=== PATIENT | male | born 1960 ===

== ENCOUNTER 2017-01-30 11:11 | Day surgery (SDC) | payer OTHER ==
[~2017-01-30 11:11] MED LIST: Lactated Ringers 1,000 ML IV SCH
--- NOTE | 2017-01-30 11:29 | PCM.PREANE ---
Preanesthetic Assessment - Anesthesia/Transfusion/Family Hx Anesthesia History: Prior Anesthesia Without Reaction Family History of Anesthesia Reaction: No Transfusion History: No Prior Transfusion(s) - Review of Systems General: No Symptoms Pulmonary: No Symptoms Cardiovascular: No Symptoms Neurological: No Symptoms Other: Reports: None - Physical Assessment NPO Status Date: 01/29/17 Height: 1.78 m Weight: 92.079 kg ASA Class: 2 Mental Status: Alert & Oriented x3 Airway Class: Mallampati = 1 Dentition: Reports: Normal Dentition ROM/Head Extension: Full Lungs: Clear to Auscultation, Normal Respiratory Effort Cardiovascular: Regular Rate, Regular Rhythm - Allergies Allergies/Adverse Reactions: Allergies Allergy/AdvReac Type Severity Reaction Status Date / Time No Known Allergies Allergy Verified 01/28/17 14:42 - Anesthesia Plan Pre-Op Medication Ordered: None - Acknowledgements Anesthesia Type Planned: MAC Pt an Appropriate Candidate for the Planned Anesthesia: Yes Alternatives and Risks of Anesthesia Discussed w Pt/Guardian: Yes Pt/Guardian Understands and Agrees with Anesthesia Plan: Yes PreAnesthesia Questionnaire Other HEENT History: wears glasses Cardiovascular History: Reports: Hypertension Respiratory History: Reports: None Gastrointestinal History: Reports: Diverticulosis, Hepatitis, Hiatal Hernia Other Gastrointestinal History: has Hepatitis C Genitourinary History: Reports: None Musculoskeletal History: Reports: None Neurological History: Reports: None Psychiatric History: Reports: Anxiety, Depression Endocrine/Metabolic History: Reports: None Hematologic History: Reports: None Immunologic History: Reports: None Oncologic (Cancer) History: Reports: None - Past Surgical History Head Surgeries/Procedures: Reports: None Cardiovascular Surgical History: Reports: None GI Surgical History: Reports: Colonoscopy, Hernia, Inguinal Other GI Surgeries/Procedures: Hemicolectomy for diverticulitis Male Surgical History: Reports: None Musculoskeletal Surgical History: Reports: Shoulder Surgery Other Musculoskeletal Surgeries/Procedures:: right RTCR - SUBSTANCE USE Smoking Status *Q: Current Every Day Smoker Tobacco Use Within Last Twelve Months: Cigarettes Days Per Week of Alcohol Use: 5 Number of Drinks Per Day: 2 Total Drinks Per Week: 10 Recreational Drug Use History: Yes - HOME MEDS Home Medications: Home Meds ALPRAZolam [Xanax] 1 mg PO DAILY PRN 01/28/17 [History] Aspirin [Adult Low Dose Aspirin EC] 81 mg PO DAILY 01/28/17 [History] Bisoprolol/Hydrochlorothiazide [Ziac 10-6.25 MG] 1 tab PO DAILY 01/28/17 [ History] Pantoprazole Sodium 40 mg PO DAILY 01/28/17 [History] - CURRENT (IN HOUSE) MEDS Current Meds: Current Medications Lactated Ringer's (Ringers, Lactated) 1,000 mls @ 125 mls/hr IV ASDIRECTED JOSE RAUL
[2017-01-30] MEDS ORDERED: Propofol 200 MG/20 ML SDV ONE ×2 (11:38→11:41)
[2017-01-30] MEDS ORDERED: fentaNYL 100 MCG/2 ML SDV ONE (11:41)
[2017-01-30] MEDS ORDERED: Midazolam 1 MG/ML 2 ML SDV ONE (11:41)
[2017-01-30] MEDS ORDERED: Lidocaine 2% 5 ML SDV ONE (11:41)
--- NOTE | 2017-01-30 12:01 | PCM.OPNOTE ---
- General Post-Op/Procedure Note Date of Surgery/Procedure: 01/30/17 Operative Procedure(s): egd w bx. and colonoscopy Findings: see dictation [id number] Pre Op Diagnosis: increase constipation and abd pain Post-Op Diagnosis: GERD and diverticulosis Anesthesia Technique: Moderate Sedation Primary Surgeon: Randall Rm Pathology: sent Complications: None Condition: Good
--- NOTE | 2017-01-30 12:38 | PCM48HPAN ---
Post Anesthesia Note - EVALUATION WITHIN 48HRS OF ANESTHETIC Vital Signs in Normal Range: Yes Patient Participated in Evaluation: Yes Respiratory Function Stable: Yes Airway Patent: Yes Cardiovascular Function Stable: Yes Hydration Status Stable: Yes Pain Control Satisfactory: Yes Nausea and Vomiting Control Satisfactory: Yes Mental Status Recovered: Yes
--- NOTE | 2017-01-30 12:38 | PCM.POSTAN ---
POST ANESTHESIA ASSESSMENT - MENTAL STATUS Mental Status: Alert, Oriented - RESPIRATORY Respiratory Status: Respiratory Rate WNL, Airway Patent, O2 Saturation Stable - CARDIOVASCULAR CV Status: Pulse Rate WNL, Blood Pressure Stable - GASTROINTESTINAL GI Status: No Symptoms - POST OP HYDRATION Hydration Status: Adequate & Stable
[2017-01-30 12:51] VITALS: BP 114/69
--- NOTE | 2017-01-30 16:29 | OR ---
SURGEON: Randall Rm MD DATE OF PROCEDURE: 01/30/2017 PREOPERATIVE DIAGNOSES: History of diverticulitis, increased constipation, and abdominal pain. POSTOPERATIVE DIAGNOSES: 1. Esophagogastroduodenoscopy; diagnosis, big time acid reflux, gastroesophageal reflux disease. 2. Colonoscopy; diagnosis, diverticulosis. PROCEDURE PERFORMED: 1. Esophagogastroduodenoscopy with biopsy. 2. Colonoscopy. EGD FINDINGS: 1. The patient is easily sedated with WATER QUALITY TESTER and Diprivan. The patient is soundly snoring. 2. Oropharynx and proximal esophagus is free of disease, stricture, inflammation, ulceration. 3. Distal esophagus at GE junction at 40 with flame-like structure and salmon color change suggest [id number] acid reflux. No ulceration or esophagitis. Stomach rugae is normal in appearance and no bile, food, blood, or ulcer observed. Antrum is a little bit inflamed. Duodenum is grossly normal. Retroflexed look of the fundus of the stomach, there was no hiatal hernia. Biopsy done at antrum, GE junction, and body and sucked out the air while scope pulling out. DESCRIPTION OF PROCEDURE: The patient was taken to the endoscopy room, and with the WATER QUALITY TESTER, Diprivan was administered. A well-lubricated EGD scope was gently inserted through the oropharynx, down the esophagus, passing through the gastroesophageal junction, into the stomach. The mucosa was examined upon the passage. Any etiology will be noted. Once in the stomach, we continued to advance to the distal antrum, passed through the pylorus into the second portion of the duodenum. Again, the mucosa was examined for any abnormality and etiology. The scope was then retrieved back to the stomach and then retroflexed to look at the fundus of the stomach. If a biopsy was indicated, we will biopsy the antrum, body, and gastroesophageal junction. The air will be sucked out while the scope is retrieved to reduce the patient's discomfort. The patient tolerated the procedure well. There were no intraoperative complications. Dr. Rm was present through the whole procedure. Prior to surgery, a time-out had been called, the patient identified, procedure identified and antibiotic administered. COLONOSCOPY FINDINGS: 1. The patient is easily sedated with WATER QUALITY TESTER and Diprivan. The patient is soundly snoring. 2. Bowel prep is left to be desirable with a large amount of liquid stool, and also some semi-formed stool ball probably from the diverticulosis. 3. The patient has moderate diverticulosis on the left and moderate diverticulosis on the right. There was no diverticulosis on the transverse colon. Failed to observe any anastomosis line at all. The patient also has internal hemorrhoids. No polyp, inflammation, stricture, ulceration, bleeding, AV malformation observed, or external hemorrhoids. The patient would benefit from a repeat colonoscopy in 10 years from today or if clinically indicated otherwise. DESCRIPTION OF PROCEDURE: The patient was taken to the endoscopy room. A time out was called, patient identified, and procedure identified. Diprivan was then administrated. Patient went from awake to sleep, hearing doctor talking or door closing is normal. Perineum inspection and digital examination were then performed. A well- lubricated colonoscope was gently inserted through the rectum, advanced past the rectosigmoid junction, the descending colon, splenic flexure, transverse colon, hepatic flexure, ascending colon, arrived to the cecum. Cecum was identified as dictated in the finding. Then the scope was carefully withdrawn while attention was paid to the mucosal surface for any abnormality. Air will be sucked out during the scope withdrawal. At the rectum, retroflexed to examine any rectal diseases, fistula or hemorrhoids. Patient tolerated procedure well. There were no intraoperative complications, and Dr. Rm was present throughout the whole procedure. As always, thank you for the kind referral. MATHEUS LORA /[id number]
== END 2017-01-30 12:40 | disposition home or self-care (01) ==
LOC: MW.SDS 11:11
PROVIDERS: ATTEND Surgery
DX: K29.50 Unspecified chronic gastritis without bleeding (principal); K20.9 Esophagitis, unspecified; K57.30 Diverticulosis of large intestine without perforation or abscess without bleeding; K64.8 Other hemorrhoids; B18.2 Chronic viral hepatitis C; I10 Essential (primary) hypertension; F41.8 Other specified anxiety disorders; F17.210 Nicotine dependence, cigarettes, uncomplicated; Z79.82 Long term (current) use of aspirin; Z79.899 Other long term (current) drug therapy; Z90.49 Acquired absence of other specified parts of digestive tract; Z98.890 Other specified postprocedural states; Z80.0 Family history of malignant neoplasm of digestive organs
CPT/HCPCS: 43239; 45380; J2250; J3010; J7120; 00740; 88305; 88312; J2704

== ENCOUNTER 2017-05-05 08:00 | Inpatient (IN) | payer OTHER ==
[~2017-05-05 08:00] MED LIST changes: +Acetaminophen 1,000 MG in Premix Bag 1 BAG IV ONE; +Acetaminophen 1,000 MG in Premix Bag 1 BAG IV SCH; +Famotidine 20 MG/2 ML SDV IVPUSH SCH; +Ketorolac 30 MG/ML SDV IVPUSH SCH; -Lactated Ringers 1,000 ML IV SCH; +Ropivacaine 49.25 ML, EPINEPHrine 0.5 MG, cloNIDine 80 MCG in Sodium Chloride 0.9% 48.4... INJECT ONE; +Ropivacaine 49.25 ML, Ketorolac 30 MG, EPINEPHrine 0.5 MG, cloNIDine 80 MCG in Sodium C... INJECT ONE; +Scopolamine 1.5 MG Transdermal Patch TRDERM SCH; +ceFAZolin 2 GM in Premix Bag 1 BAG IV SCH; +oxyCODONE ER 20 MG TAB.ER PO SCH
[2017-05-05] MEDS: Lactated Ringers 1,000 ML IV SCH (11:15)
--- NOTE | 2017-05-05 11:23 | PCM.OPNOTE ---
- General Post-Op/Procedure Note Date of Surgery/Procedure: 05/05/17 Operative Procedure(s): R TKA Post-Op Diagnosis: DJD R knee Anesthesia Technique: Moderate Sedation, Spinal Primary Surgeon: Marion Spangler Auto Driver: Albino Hernandez Auto Driver: Josselyn Lorenzo in mLs: 50 Condition: Good Free Text/Narrative:: tt=64 min #[id number]
--- NOTE | 2017-05-05 12:11 | PCM.PREANE ---
Preanesthetic Assessment - Anesthesia/Transfusion/Family Hx Anesthesia History: Prior Anesthesia Without Reaction Other Type of Anesthesia Reaction Comment: Pt states it takes "a lot of pain medicine to keep me down" Family History of Anesthesia Reaction: No Transfusion History: No Prior Transfusion(s) - Review of Systems General: No Symptoms Pulmonary: No Symptoms Cardiovascular: No Symptoms Gastrointestinal: No Symptoms Neurological: No Symptoms Other: Reports: None - Physical Assessment NPO Status Date: 05/05/17 NPO Status Time: 00:00 O2 Sat by Pulse Oximetry: 95 Respiratory Rate: 16 Vital Signs: Last Vital Signs Temp 98.2 F 05/05/17 11:05 Pulse 77 05/05/17 11:05 Resp 16 05/05/17 11:05 BP 138/92 H 05/05/17 11:05 Pulse Ox 95 05/05/17 11:05 Height: 5 ft 10 in Weight: 219 lb ASA Class: 3 Mental Status: Alert & Oriented x3 Airway Class: Mallampati = 2 Dentition: Reports: Normal Dentition Thyro-Mental Finger Breadths: 3 Mouth Opening Finger Breadths: 3 ROM/Head Extension: Full Lungs: Clear to Auscultation, Normal Respiratory Effort Cardiovascular: Regular Rate, Regular Rhythm - Allergies Allergies/Adverse Reactions: Allergies Allergy/AdvReac Type Severity Reaction Status Date / Time No Known Allergies Allergy Verified 04/30/17 15:08 - Blood Blood Available: No Product(s) Available: None - Anesthesia Plan Free Text/Narrative:: Plan for SAB with MAC - pt is slightly hesitant because he feels spinals are "outdated" - after discussion of risks and benefits, pt agrees to proceed with spinal at this time. Pre-Op Medication Ordered: None - Acknowledgements Anesthesia Type Planned: Spinal, MAC Pt an Appropriate Candidate for the Planned Anesthesia: Yes Alternatives and Risks of Anesthesia Discussed w Pt/Guardian: Yes Pt/Guardian Understands and Agrees with Anesthesia Plan: Yes PreAnesthesia Questionnaire HEENT History: Reports: Cataract Other HEENT History: wears glasses Cardiovascular History: Reports: Afib (hx of afib 18 months ago with cardioversion in [place] - pt stated he had a heart cath done at that time and was told everything was clear - no episodes of afib since), Hypertension Respiratory History: Reports: None Gastrointestinal History: Reports: Diverticulosis, GERD, Hepatitis, Hiatal Hernia Other Gastrointestinal History: was told he had a hiatal hernia in the past, but recent EGD did not show it, has chronic Hepatitis C Genitourinary History: Reports: None Musculoskeletal History: Reports: None Neurological History: Reports: None Psychiatric History: Reports: Anxiety Endocrine/Metabolic History: Reports: Obesity/BMI 30+ Hematologic History: Reports: None Immunologic History: Reports: None Oncologic (Cancer) History: Reports: None - Infectious Disease History Infectious Disease History: Reports: Hepatitis C - Past Surgical History Head Surgeries/Procedures: Reports: None Cardiovascular Surgical History: Reports: None, Other (See Below) (cardiac cath with no intervention and hx of cardioversion) GI Surgical History: Reports: Colon, Colonoscopy, EGD, Hernia, Inguinal Other GI Surgeries/Procedures: hx of Left Hemicolectomy for diverticulitis Male Surgical History: Reports: None Musculoskeletal Surgical History: Reports: Shoulder Surgery Other Musculoskeletal Surgeries/Procedures:: right RTCR - SUBSTANCE USE Smoking Status *Q: Current Every Day Smoker Tobacco Use Within Last Twelve Months: Cigarettes (1-1 1/2 packs per day) Days Per Week of Alcohol Use: 6 Number of Drinks Per Day: 2 Total Drinks Per Week: 12 Recreational Drug Use History: Yes Recreational Drug Type: Reports: Marijuana/Hashish Recreational Drug Last Use: 2 weeks ago - HOME MEDS Home Medications: Home Meds ALPRAZolam [Xanax] 1 mg PO DAILY PRN 01/28/17 [History] Aspirin [Adult Low Dose Aspirin EC] 81 mg PO DAILY 01/28/17 [History] Bisoprolol/Hydrochlorothiazide [Ziac 10-6.25 MG] 1 tab PO DAILY 01/28/17 [ History] Pantoprazole Sodium 40 mg PO DAILY 01/28/17 [History] - CURRENT (IN HOUSE) MEDS Current Meds: Current Medications Famotidine (Pepcid) 40 mg IVPUSH ONARRIVE JOSE RAUL Stop: 05/05/17 15:00 Cefazolin Sodium/Dextrose 2 gm (/ Premix) 50 mls @ 100 mls/hr IV ONCALL JOSE RAUL Stop: 05/05/17 15:00 Lactated Ringer's (Ringers, Lactated) 1,000 mls @ 100 mls/hr IV ASDIRECTED JOSE RAUL Acetaminophen 1,000 mg/ Premix 100 mls @ 400 mls/hr IV ONCALL JOSE RAUL Stop: 05/05/17 15:00 Oxycodone HCl (Oxycontin) 20 mg PO ONARRIVE JOSE RAUL Stop: 05/05/17 15:00 Scopolamine (Transderm-Scop) 1.5 mg TRDERM ONARRIVE JOSE RAUL Tranexamic Acid (Cyklokapron) 4,000 mg IV SEECOMMENT [facility] Stop: 05/05/17 15:00 Discontinued Medications Ropivacaine 49.25 ml/Ketorolac Tromethamine 30 mg/Epinephrine HCl 0.5 mg/ Clonidine HCl 80 mcg/ Sodium Chloride 100 mls @ 50 mls/min INJECT ONETIME ONE Stop: 05/05/17 06:01 Acetaminophen 1,000 mg/ Premix 100 mls @ 400 mls/hr IV ONCALL ONE Stop: 05/05/17 06:14 Ropivacaine 49.25 ml/Epinephrine HCl 0.5 mg/Clonidine HCl 80 mcg/ Sodium Chloride 99 mls @ 50 mls/min INJECT ONETIME ONE Stop: 05/05/17 06:01 Ketorolac Tromethamine (Toradol) 30 mg IVPUSH ONARRIVE [facility] Tranexamic Acid (Cyklokapron) Confirm Administered Dose 4,000 mg .ROUTE .STK- MED ONE Stop: 05/05/17 07:19
[2017-05-05] MEDS ORDERED: Lidocaine 2% 5 ML SDV ONE (13:37)
[2017-05-05] MEDS ORDERED: fentaNYL 100 MCG/2 ML SDV ONE ×2 (13:38→14:55)
[2017-05-05] MEDS ORDERED: Midazolam 1 MG/ML 2 ML SDV ONE (13:38)
[2017-05-05] MEDS ORDERED: Propofol 200 MG/20 ML SDV ONE (13:38)
[2017-05-05] MEDS ORDERED: Ketamine 500 mg/10 ML MDV ONE (14:44)
[2017-05-05] MEDS ORDERED: Ondansetron 4 MG/2 ML SDV ONE (14:45)
[2017-05-05] MEDS ORDERED: Aluminum Hydroxide/Magnesium Hydroxide/Simethicone Susp 30 ML Cup PO PRN (16:03)
[2017-05-05] MEDS ORDERED: Bisacodyl 10 MG Supp RECTAL PRN (16:03)
[2017-05-05] MEDS ORDERED: diphenhydrAMINE 25 MG Cap PO PRN (16:03)
[2017-05-05] MEDS ORDERED: Ondansetron 4 MG/2 ML SDV IV PRN (16:03)
[2017-05-05] MEDS ORDERED: Morphine 4 MG/ML Syringe IVPUSH PRN (16:04)
[2017-05-05] MEDS: fentaNYL 100 MCG/2 ML SDV IVPUSH PRN ×4 (16:35→17:12)
[2017-05-05] MEDS ORDERED: Cyclobenzaprine 5 MG Tab PO PRN (16:48)
--- NOTE | 2017-05-05 17:29 | PCM.POSTAN ---
POST ANESTHESIA ASSESSMENT - MENTAL STATUS Mental Status: Alert, Oriented - RESPIRATORY Respiratory Status: Respiratory Rate WNL, Airway Patent, O2 Saturation Stable - CARDIOVASCULAR CV Status: Pulse Rate WNL, Blood Pressure Stable - GASTROINTESTINAL GI Status: No Symptoms - PAIN Pain Score: 5 (Spinal intact @ T10 level) - POST OP HYDRATION Hydration Status: Adequate & Stable - OBSERVATIONS Free Text/Narrative:: Pt having some discomfort to his R back - states that he has had muscle spasms before and "feels twisted" - IV fentanyl initially given and pt offered PO Flexeril, but currently declining because he "doesn't like the way it makes me feel." Pt aware that he can request it at any time. Spinal still intact to T10 @ this time. Pt meets requirements for discharge from PACU.
[2017-05-05] MEDS: Ketorolac 30 MG/ML SDV IVPUSH SCH ×2 (17:50→22:33)
[2017-05-05] MEDS: oxyCODONE 5 MG Tab PO PRN (18:52)
[2017-05-05] MEDS: HYDROmorphone 1 MG/ML Syringe IVPUSH PRN ×2 (20:32→23:53)
[2017-05-05] MEDS: Acetaminophen 1,000 MG in Premix Bag 1 BAG IV SCH (20:35)
[2017-05-05] MEDS: Docusate Sodium 100 MG Cap PO SCH (21:27)
[2017-05-05] MEDS: oxyCODONE ER 20 MG TAB.ER PO SCH (21:27)
[2017-05-05] MEDS: ceFAZolin 2 GM in Premix Bag 1 BAG IV SCH (22:38)
[2017-05-06] MEDS: Acetaminophen 1,000 MG in Premix Bag 1 BAG IV SCH (02:12)
[2017-05-06] MEDS: Lactated Ringers 1,000 ML IV SCH (04:48)
[2017-05-06] MEDS: Ketorolac 30 MG/ML SDV IVPUSH SCH (04:49)
[2017-05-06] MEDS: ceFAZolin 2 GM in Premix Bag 1 BAG IV SCH (05:35)
[2017-05-06] MEDS: oxyCODONE 5 MG Tab PO PRN ×4 (05:36→18:00)
[2017-05-06] MEDS: Pantoprazole 40 MG Tab.CR PO SCH (06:39)
[2017-05-06] MEDS: HYDROmorphone 1 MG/ML Syringe IVPUSH PRN ×4 (08:24→18:34)
--- NOTE | 2017-05-06 08:29 | PCM.SURGPN ---
<Albino Hernandez - Last Filed: 05/06/17 08:29> - General Info Date of Service: 05/06/17 Date of Surgery/Procedure: 05/05/17 POD#: 1 Functional Status: Reports: Pain Controlled, Tolerating Diet, Ambulating, Urinating - Review of Systems General: Reports: No Symptoms Pulmonary: Reports: No Symptoms Cardiovascular: Reports: No Symptoms Gastrointestinal: Reports: No Symptoms Genitourinary: Reports: No Symptoms Musculoskeletal: Reports: Leg Pain, Joint Pain, Joint Swelling Neurological: Reports: No Symptoms Psychiatric: Reports: No Symptoms - Patient Data Vitals - Most Recent: Last Vital Signs Temp 36.5 C 05/06/17 05:00 Pulse 89 05/06/17 05:00 Resp 19 05/06/17 05:00 BP 128/82 05/06/17 05:00 Pulse Ox 95 05/06/17 05:00 Weight - Most Recent: 99.337 kg I&O - Last 24 Hours: Intake & Output 05/05/17 05/06/17 05/06/17 22:59 06:59 14:59 Intake Total 3000 750 Output Total 60 800 Balance 2940 -50 Lab Results Last 24 Hrs: Laboratory Results - last 24 hr 05/05/17 05/05/17 05/06/17 Range/Units 11:20 11:20 07:19 Hgb 13.7 (13.0-17.0) g/dL Hct 39.7 (38.0-50.0) % Blood Type B POSITIVE Antibody Screen POSITIVE Antibody Identification Anti-E Antigen Typing E Antigen - NEGATIVE Cancelled Crossmatch See Detail Med Orders - Current: Current Medications Al Hydroxide/Mg Hydroxide (Mag-Al Plus) 30 ml PO Q4H PRN PRN Reason: indigestion Alprazolam (Xanax) 1 mg PO DAILY PRN PRN Reason: Anxiety Aspirin (Aspirin) 325 mg PO BID [facility] Bisacodyl (Dulcolax) 10 mg RECTAL DAILY PRN PRN Reason: Constipation Celecoxib (Celebrex) 200 mg PO DAILY [facility] Cyclobenzaprine HCl (Flexeril) 5 mg PO TID PRN PRN Reason: Back spasms Stop: 05/06/17 16:48 Last Admin: 05/05/17 18:15 Dose: 5 mg Diphenhydramine HCl (Benadryl) 25 - 50 mg PO Q6H PRN PRN Reason: Itching Docusate Sodium (Colace) 100 mg PO BID [facility] Last Admin: 05/05/17 21:27 Dose: 100 mg Fentanyl (Sublimaze) 50 mcg IVPUSH .Q5MIN PRN PRN Reason: Pain Last Admin: 05/05/17 17:12 Dose: 50 mcg Hydromorphone HCl (Dilaudid) 1 mg IVPUSH Q3H PRN PRN Reason: Pain Last Admin: 05/06/17 08:24 Dose: 1 mg Lactated Ringer's (Ringers, Lactated) 1,000 mls @ 100 mls/hr IV ASDIRECTED [facility] Last Admin: 05/06/17 04:48 Dose: 100 mls/hr Ondansetron HCl (Zofran) 4 mg IV Q6HR PRN PRN Reason: NAUSEA/VOMITING Oxycodone HCl (Oxycodone) 5 - 10 mg PO Q4H PRN PRN Reason: Pain Last Admin: 05/06/17 05:36 Dose: 10 mg Oxycodone HCl (Oxycontin) 20 mg PO Q12HR [facility] Last Admin: 05/05/17 21:27 Dose: 20 mg Pantoprazole Sodium (Protonix) 40 mg PO ACBREAKFAST [facility] Last Admin: 05/06/17 06:39 Dose: 40 mg Bisoprolol/Hctz 1 each PO DAILY [facility] Scopolamine (Transderm-Scop) 1.5 mg TRDERM ONARRIVE [facility] Last Admin: 05/05/17 12:40 Dose: 1.5 mg Discontinued Medications Famotidine (Pepcid) 40 mg IVPUSH ONARRIVE [facility] Stop: 05/05/17 15:00 Last Admin: 05/05/17 12:40 Dose: 40 mg Fentanyl (Sublimaze) Confirm Administered Dose 100 mcg .ROUTE .STK-MED ONE Stop: 05/05/17 13:39 Fentanyl (Sublimaze) Confirm Administered Dose 100 mcg .ROUTE .STK-MED ONE Stop: 05/05/17 14:56 Cefazolin Sodium/Dextrose 2 gm (/ Premix) 50 mls @ 100 mls/hr IV ONCALL [facility] Stop: 05/05/17 15:00 Ropivacaine 49.25 ml/Ketorolac Tromethamine 30 mg/Epinephrine HCl 0.5 mg/ Clonidine HCl 80 mcg/ Sodium Chloride 100 mls @ 50 mls/min INJECT ONETIME ONE Stop: 05/05/17 06:01 Acetaminophen 1,000 mg/ Premix 100 mls @ 400 mls/hr IV ONCALL ONE Stop: 05/05/17 06:14 Ropivacaine 49.25 ml/Epinephrine HCl 0.5 mg/Clonidine HCl 80 mcg/ Sodium Chloride 99 mls @ 50 mls/min INJECT ONETIME ONE Stop: 05/05/17 06:01 Last Admin: 05/05/17 17:43 Dose: Not Given Acetaminophen 1,000 mg/ Premix 100 mls @ 400 mls/hr IV ONCALL [facility] Stop: 05/05/17 15:00 Last Admin: 05/05/17 12:40 Dose: 400 mls/hr Acetaminophen 1,000 mg/ Premix 100 mls @ 400 mls/hr IV Q6H [facility] Stop: 05/06/17 02:14 Last Admin: 05/06/17 02:12 Dose: 400 mls/hr Cefazolin Sodium/Dextrose 2 gm (/ Premix) 50 mls @ 100 mls/hr IV Q8HR [facility] Stop: 05/06/17 06:29 Last Admin: 05/06/17 05:35 Dose: 100 mls/hr Acetaminophen (Ofirmev) Confirm Administered Dose 100 mls @ as directed IV .STK- MED ONE Stop: 05/06/17 01:52 Ketamine HCl (Ketalar) Confirm Administered Dose 500 mg .ROUTE .STK-MED ONE Stop: 05/05/17 14:45 Ketorolac Tromethamine (Toradol) 30 mg IVPUSH ONARRIVE [facility] Ketorolac Tromethamine (Toradol) 30 mg IVPUSH Q6H [facility] Stop: 05/06/17 04:16 Last Admin: 05/06/17 04:49 Dose: 30 mg Lidocaine (Xylocaine-Mpf 2%) Confirm Administered Dose 5 ml .ROUTE .STK-MED ONE Stop: 05/05/17 13:38 Midazolam HCl (Versed 1 Mg/Ml) Confirm Administered Dose 4 mg .ROUTE .STK-MED ONE Stop: 05/05/17 13:39 Morphine Sulfate (Morphine) 1 - 3 mg IVPUSH Q3H PRN PRN Reason: Pain Last Admin: 05/05/17 17:52 Dose: 3 mg Ondansetron HCl (Zofran) Confirm Administered Dose 4 mg .ROUTE .STK-MED ONE Stop: 05/05/17 14:46 Oxycodone HCl (Oxycontin) 20 mg PO ONARRIVE [facility] Stop: 05/05/17 15:00 Last Admin: 05/05/17 12:40 Dose: 20 mg Propofol (Diprivan 20 Ml) Confirm Administered Dose 800 mg .ROUTE .STK-MED ONE Stop: 05/05/17 13:39 Tranexamic Acid (Cyklokapron) 4,000 mg IV SEECOMMENT [facility] Stop: 05/05/17 15:00 Tranexamic Acid (Cyklokapron) Confirm Administered Dose 4,000 mg .ROUTE .STK- MED ONE Stop: 05/05/17 07:19 - Exam Wound/Incisions: Dressing Dry and Intact General: Alert, Oriented HEENT: Pupils Equal, Pupils Reactive Neck: Trachea Midline Lungs: Normal Respiratory Effort Cardiovascular: Regular Rate Extremities: Other (Right anterior tibialis, extensor hallucis longus and gastrocnemius strength +5/5 bilaterally. Sensation intact. Dorsalis pedis and posterior tibial pulses +2 bilaterally. ) Neurological: No New Focal Deficit Psy/Mental Status: Alert, Normal Affect, Normal Mood - Problem List Review Problem List Initiated/Reviewed/Updated: Yes - My Orders Last 24 Hours: Active Orders 24 hr Category Date Time Status Patient Status [ADT] Routine ADT 05/05/17 11:23 Active Activity as Tolerated [RC] .Routine Care 05/05/17 16:03 Active Intake and Output [RC] Q12H Care 05/05/17 16:03 Active Neurovascular Check [RC] Q2HR Care 05/05/17 16:03 Active Notify Provider Vital Signs [RC] ASDIRECTED Care 05/05/17 16:03 Active RT Incentive Spirometry [RC] ASDIRECTED Care 05/05/17 16:03 Active Vital Signs [RC] Q4H Care 05/05/17 16:03 Active PT Evaluation and Treatment [CONS] Routine Cons 05/05/17 16:03 Active Knee 1V or 2V Rt [CR] Routine Exams 05/05/17 15:18 Taken HEMOGLOBIN/HEMATOCRIT,HH [HEME] DAILY Lab 05/07/17 07:00 Ordered HEMOGLOBIN/HEMATOCRIT,HH [HEME] DAILY Lab 05/08/17 07:00 Ordered RED BLOOD CELLS LP [BBK] Routine Lab 05/05/17 11:20 Results ALPRAZolam [Xanax] Med 05/06/17 09:00 Active 1 mg PO DAILY PRN Alum Hydrox/Mag Hydrox/Simeth [Mag-Al Plus] Med 05/05/17 16:03 Active 30 ml PO Q4H PRN Aspirin Med 05/06/17 09:00 Active 325 mg PO BID Bisacodyl [Dulcolax] Med 05/05/17 16:03 Active 10 mg RECTAL DAILY PRN Celecoxib [CeleBREX] Med 05/06/17 09:00 Active 200 mg PO DAILY Cyclobenzaprine [Flexeril] Med 05/05/17 16:48 Active 5 mg PO TID PRN Docusate Sodium [Colace] Med 05/05/17 21:00 Active 100 mg PO BID HYDROmorphone [Dilaudid] Med 05/05/17 20:20 Active 1 mg IVPUSH Q3H PRN Ondansetron [Zofran] Med 05/05/17 16:03 Active 4 mg IV Q6HR PRN Pantoprazole [ProTONIX] Med 05/06/17 07:30 Active 40 mg PO ACBREAKFAST Patient's Own Medication [Ptom] Med 05/06/17 09:00 Active 1 each PO DAILY diphenhydrAMINE [Benadryl] Med 05/05/17 16:03 Active 25 - 50 mg PO Q6H PRN fentaNYL [Sublimaze] Med 05/05/17 15:06 Active 50 mcg IVPUSH .Q5MIN PRN oxyCODONE Med 05/05/17 16:04 Active 5 - 10 mg PO Q4H PRN oxyCODONE ER [OxyCONTIN] Med 05/05/17 21:00 Active 20 mg PO Q12HR Ice Therapy [OM.PC] Routine Oth 05/05/17 16:03 Ordered Medication Orders Al Hydroxide/Mg Hydroxide (Mag-Al Plus) 30 ml PO Q4H PRN PRN Reason: indigestion Alprazolam (Xanax) 1 mg PO DAILY PRN PRN Reason: Anxiety Aspirin (Aspirin) 325 mg PO BID [facility] Bisacodyl (Dulcolax) 10 mg RECTAL DAILY PRN PRN Reason: Constipation Celecoxib (Celebrex) 200 mg PO DAILY [facility] Cyclobenzaprine HCl (Flexeril) 5 mg PO TID PRN PRN Reason: Back spasms Stop: 05/06/17 16:48 Last Admin: 05/05/17 18:15 Dose: 5 mg Diphenhydramine HCl (Benadryl) 25 - 50 mg PO Q6H PRN PRN Reason: Itching Docusate Sodium (Colace) 100 mg PO BID [facility] Last Admin: 05/05/17 21:27 Dose: 100 mg Fentanyl (Sublimaze) 50 mcg IVPUSH .Q5MIN PRN PRN Reason: Pain Last Admin: 05/05/17 17:12 Dose: 50 mcg Admin: 05/05/17 17:07 Dose: 50 mcg Admin: 05/05/17 16:48 Dose: 50 mcg Admin: 05/05/17 16:35 Dose: 50 mcg Hydromorphone HCl (Dilaudid) 1 mg IVPUSH Q3H PRN PRN Reason: Pain Last Admin: 05/06/17 08:24 Dose: 1 mg Admin: 05/05/17 23:53 Dose: 1 mg Admin: 05/05/17 20:32 Dose: 1 mg Lactated Ringer's (Ringers, Lactated) 1,000 mls @ 100 mls/hr IV ASDIRECTED [facility] Last Admin: 05/06/17 04:48 Dose: 100 mls/hr Infusion: 05/05/17 21:15 Dose: 100 mls/hr Admin: 05/05/17 11:15 Dose: 100 mls/hr Ondansetron HCl (Zofran) 4 mg IV Q6HR PRN PRN Reason: NAUSEA/VOMITING Oxycodone HCl (Oxycodone) 5 - 10 mg PO Q4H PRN PRN Reason: Pain Last Admin: 05/06/17 05:36 Dose: 10 mg Admin: 05/05/17 18:52 Dose: 10 mg Oxycodone HCl (Oxycontin) 20 mg PO Q12HR [facility] Last Admin: 05/05/17 21:27 Dose: 20 mg Pantoprazole Sodium (Protonix) 40 mg PO ACBREAKFAST [facility] Last Admin: 05/06/17 06:39 Dose: 40 mg Bisoprolol/Hctz 1 each PO DAILY [facility] Scopolamine (Transderm-Scop) 1.5 mg TRDERM ONARRIVE [facility] Last Admin: 05/05/17 12:40 Dose: 1.5 mg - Assessment Assessment (Free Text/Narrative):: Patient up to chair this AM. Pain well controlled. Tolerating diet. VSS. Hgb 13.7. UO 1360 mL. - Plan Plan (Free Text/Narrative):: Continue PT. Continue pain management. Discontinue LRs and [place]. Encourage PO fluid intake. Start Aspirin 325mg PO BID for DVT prophylaxis. Discharge home this afternoon. <Marion Spangler R - Last Filed: 05/06/17 18:23> - Patient Data Vitals - Most Recent: Last Vital Signs Temp 97.8 F 05/06/17 16:00 Pulse 71 05/06/17 16:00 Resp 16 05/06/17 16:00 BP 168/93 H 05/06/17 16:00 Pulse Ox 94 L 05/06/17 16:00 I&O - Last 24 Hours: Intake & Output 05/06/17 05/06/17 05/06/17 06:59 14:59 22:59 Intake Total 750 Output Total 800 Balance -50 Lab Results Last 24 Hrs: Laboratory Results - last 24 hr 05/06/17 Range/Units 07:19 Hgb 13.7 (13.0-17.0) g/dL Hct 39.7 (38.0-50.0) % Med Orders - Current: Current Medications Al Hydroxide/Mg Hydroxide (Mag-Al Plus) 30 ml PO Q4H PRN PRN Reason: indigestion Alprazolam (Xanax) 1 mg PO DAILY PRN PRN Reason: Anxiety Aspirin (Ecotrin) 325 mg PO BID [facility] Last Admin: 05/06/17 10:52 Dose: 325 mg Bisacodyl (Dulcolax) 10 mg RECTAL DAILY PRN PRN Reason: Constipation Celecoxib (Celebrex) 200 mg PO DAILY [facility] Last Admin: 05/06/17 08:30 Dose: 200 mg Diphenhydramine HCl (Benadryl) 25 - 50 mg PO Q6H PRN PRN Reason: Itching Docusate Sodium (Colace) 100 mg PO BID [facility] Last Admin: 05/06/17 08:30 Dose: 100 mg Fentanyl (Sublimaze) 50 mcg IVPUSH .Q5MIN PRN PRN Reason: Pain Last Admin: 05/05/17 17:12 Dose: 50 mcg Hydromorphone HCl (Dilaudid) 1 mg IVPUSH Q3H PRN PRN Reason: Pain Last Admin: 05/06/17 15:29 Dose: 1 mg Ondansetron HCl (Zofran) 4 mg IV Q6HR PRN PRN Reason: NAUSEA/VOMITING Oxycodone HCl (Oxycontin) 20 mg PO Q12HR [facility] Last Admin: 05/06/17 08:30 Dose: 20 mg Oxycodone HCl (Oxycodone) 10 - 20 mg PO Q4H PRN PRN Reason: Pain Last Admin: 05/06/17 18:00 Dose: 20 mg Pantoprazole Sodium (Protonix) 40 mg PO ACBREAKFAST [facility] Last Admin: 05/06/17 06:39 Dose: 40 mg Bisoprolol/Hctz 1 each PO DAILY [facility] Last Admin: 05/06/17 10:53 Dose: Not Given Scopolamine (Transderm-Scop) 1.5 mg TRDERM ONARRIVE [facility] Last Admin: 05/05/17 12:40 Dose: 1.5 mg Sodium Chloride (Saline Flush) 10 ml FLUSH ASDIRECTED PRN PRN Reason: Keep Vein Open Sodium Chloride (Saline Flush) 2.5 ml FLUSH ASDIRECTED PRN PRN Reason: Keep Vein Open Discontinued Medications Aspirin (Aspirin) 325 mg PO BID [facility] Cyclobenzaprine HCl (Flexeril) 5 mg PO TID PRN PRN Reason: Back spasms Stop: 05/06/17 16:48 Last Admin: 05/05/17 18:15 Dose: 5 mg Famotidine (Pepcid) 40 mg IVPUSH ONARRIVE [facility] Stop: 05/05/17 15:00 Last Admin: 05/05/17 12:40 Dose: 40 mg Fentanyl (Sublimaze) Confirm Administered Dose 100 mcg .ROUTE .STK-MED ONE Stop: 05/05/17 13:39 Fentanyl (Sublimaze) Confirm Administered Dose 100 mcg .ROUTE .STK-MED ONE Stop: 05/05/17 14:56 Cefazolin Sodium/Dextrose 2 gm (/ Premix) 50 mls @ 100 mls/hr IV ONCALL [facility] Stop: 05/05/17 15:00 Ropivacaine 49.25 ml/Ketorolac Tromethamine 30 mg/Epinephrine HCl 0.5 mg/ Clonidine HCl 80 mcg/ Sodium Chloride 100 mls @ 50 mls/min INJECT ONETIME ONE Stop: 05/05/17 06:01 Lactated Ringer's (Ringers, Lactated) 1,000 mls @ 100 mls/hr IV ASDIRECTED [facility] Last Admin: 05/06/17 04:48 Dose: 100 mls/hr Acetaminophen 1,000 mg/ Premix 100 mls @ 400 mls/hr IV ONCALL ONE Stop: 05/05/17 06:14 Ropivacaine 49.25 ml/Epinephrine HCl 0.5 mg/Clonidine HCl 80 mcg/ Sodium Chloride 99 mls @ 50 mls/min INJECT ONETIME ONE Stop: 05/05/17 06:01 Last Admin: 05/05/17 17:43 Dose: Not Given Acetaminophen 1,000 mg/ Premix 100 mls @ 400 mls/hr IV ONCALL [facility] Stop: 05/05/17 15:00 Last Admin: 05/05/17 12:40 Dose: 400 mls/hr Acetaminophen 1,000 mg/ Premix 100 mls @ 400 mls/hr IV Q6H [facility] Stop: 05/06/17 02:14 Last Admin: 05/06/17 02:12 Dose: 400 mls/hr Cefazolin Sodium/Dextrose 2 gm (/ Premix) 50 mls @ 100 mls/hr IV Q8HR [facility] Stop: 05/06/17 06:29 Last Admin: 05/06/17 05:35 Dose: 100 mls/hr Acetaminophen (Ofirmev) Confirm Administered Dose 100 mls @ as directed IV .STK- MED ONE Stop: 05/06/17 01:52 Ketamine HCl (Ketalar) Confirm Administered Dose 500 mg .ROUTE .STK-MED ONE Stop: 05/05/17 14:45 Ketorolac Tromethamine (Toradol) 30 mg IVPUSH ONARRIVE [facility] Ketorolac Tromethamine (Toradol) 30 mg IVPUSH Q6H [facility] Stop: 05/06/17 04:16 Last Admin: 05/06/17 04:49 Dose: 30 mg Lidocaine (Xylocaine-Mpf 2%) Confirm Administered Dose 5 ml .ROUTE .STK-MED ONE Stop: 05/05/17 13:38 Midazolam HCl (Versed 1 Mg/Ml) Confirm Administered Dose 4 mg .ROUTE .STK-MED ONE Stop: 05/05/17 13:39 Morphine Sulfate (Morphine) 1 - 3 mg IVPUSH Q3H PRN PRN Reason: Pain Last Admin: 05/05/17 17:52 Dose: 3 mg Ondansetron HCl (Zofran) Confirm Administered Dose 4 mg .ROUTE .STK-MED ONE Stop: 05/05/17 14:46 Oxycodone HCl (Oxycontin) 20 mg PO ONARRIVE [facility] Stop: 05/05/17 15:00 Last Admin: 05/05/17 12:40 Dose: 20 mg Oxycodone HCl (Oxycodone) 5 - 10 mg PO Q4H PRN PRN Reason: Pain Last Admin: 05/06/17 10:37 Dose: 10 mg Propofol (Diprivan 20 Ml) Confirm Administered Dose 800 mg .ROUTE .STK-MED ONE Stop: 05/05/17 13:39 Tranexamic Acid (Cyklokapron) 4,000 mg IV SEECOMMENT [facility] Stop: 05/05/17 15:00 Tranexamic Acid (Cyklokapron) Confirm Administered Dose 4,000 mg .ROUTE .STK- MED ONE Stop: 05/05/17 07:19 - My Orders Last 24 Hours: Active Orders 24 hr Category Date Time Status Ready for Discharge [RC] PER UNIT ROUTINE Care 05/06/17 08:35 Inactive Urinary Catheter Removal [RC] Per Unit Routine Care 05/06/17 08:31 Active HEMOGLOBIN/HEMATOCRIT,HH [HEME] DAILY Lab 05/07/17 07:00 Ordered HEMOGLOBIN/HEMATOCRIT,HH [HEME] DAILY Lab 05/08/17 07:00 Ordered ALPRAZolam [Xanax] Med 05/06/17 09:00 Active 1 mg PO DAILY PRN Aspirin [Ecotrin] Med 05/06/17 09:00 Active 325 mg PO BID Celecoxib [CeleBREX] Med 05/06/17 09:00 Active 200 mg PO DAILY Docusate Sodium [Colace] Med 05/05/17 21:00 Active 100 mg PO BID HYDROmorphone [Dilaudid] Med 05/05/17 20:20 Active 1 mg IVPUSH Q3H PRN Pantoprazole [ProTONIX] Med 05/06/17 07:30 Active 40 mg PO ACBREAKFAST Patient's Own Medication [Ptom] Med 05/06/17 09:00 Active 1 each PO DAILY Sodium Chloride 0.9% [Saline Flush] Med 05/06/17 08:31 Active 10 ml FLUSH ASDIRECTED PRN Sodium Chloride 0.9% [Saline Flush] Med 05/06/17 08:31 Active 2.5 ml FLUSH ASDIRECTED PRN oxyCODONE Med 05/06/17 13:29 Active 10 - 20 mg PO Q4H PRN oxyCODONE ER [OxyCONTIN] Med 05/05/17 21:00 Active 20 mg PO Q12HR Convert IV to Saline Lock [OM.PC] Routine Oth 05/06/17 08:31 Ordered Medication Orders Al Hydroxide/Mg Hydroxide (Mag-Al Plus) 30 ml PO Q4H PRN PRN Reason: indigestion Alprazolam (Xanax) 1 mg PO DAILY PRN PRN Reason: Anxiety Aspirin (Ecotrin) 325 mg PO BID [facility] Last Admin: 05/06/17 10:52 Dose: 325 mg Bisacodyl (Dulcolax) 10 mg RECTAL DAILY PRN PRN Reason: Constipation Celecoxib (Celebrex) 200 mg PO DAILY [facility] Last Admin: 05/06/17 08:30 Dose: 200 mg Diphenhydramine HCl (Benadryl) 25 - 50 mg PO Q6H PRN PRN Reason: Itching Docusate Sodium (Colace) 100 mg PO BID [facility] Last Admin: 05/06/17 08:30 Dose: 100 mg Admin: 05/05/17 21:27 Dose: 100 mg Fentanyl (Sublimaze) 50 mcg IVPUSH .Q5MIN PRN PRN Reason: Pain Last Admin: 05/05/17 17:12 Dose: 50 mcg Admin: 05/05/17 17:07 Dose: 50 mcg Admin: 05/05/17 16:48 Dose: 50 mcg Admin: 05/05/17 16:35 Dose: 50 mcg Hydromorphone HCl (Dilaudid) 1 mg IVPUSH Q3H PRN PRN Reason: Pain Last Admin: 05/06/17 15:29 Dose: 1 mg Admin: 05/06/17 11:28 Dose: 1 mg Admin: 05/06/17 08:24 Dose: 1 mg Admin: 05/05/17 23:53 Dose: 1 mg Admin: 05/05/17 20:32 Dose: 1 mg Ondansetron HCl (Zofran) 4 mg IV Q6HR PRN PRN Reason: NAUSEA/VOMITING Oxycodone HCl (Oxycontin) 20 mg PO Q12HR [facility] Last Admin: 05/06/17 08:30 Dose: 20 mg Admin: 05/05/17 21:27 Dose: 20 mg Oxycodone HCl (Oxycodone) 10 - 20 mg PO Q4H PRN PRN Reason: Pain Last Admin: 05/06/17 18:00 Dose: 20 mg Admin: 05/06/17 13:57 Dose: 20 mg Pantoprazole Sodium (Protonix) 40 mg PO ACBREAKFAST [facility] Last Admin: 05/06/17 06:39 Dose: 40 mg Bisoprolol/Hctz 1 each PO DAILY [facility] Last Admin: 05/06/17 10:53 Dose: Scopolamine (Transderm-Scop) 1.5 mg TRDERM ONARRIVE [facility] Last Admin: 05/05/17 12:40 Dose: 1.5 mg Sodium Chloride (Saline Flush) 10 ml FLUSH ASDIRECTED PRN PRN Reason: Keep Vein Open Sodium Chloride (Saline Flush) 2.5 ml FLUSH ASDIRECTED PRN PRN Reason: Keep Vein Open - Plan Plan (Free Text/Narrative):: 1820 Patient seen and examined. Agree with above. Patient was up walking with nursing. States pain not adequately controlled despite oxycodone 20mg po q4H. States po Dilaudid has worked in the past. IV Dilaudid also helping with pain. Unable to use Tylenol due to h/o Hep C. Progressing with PT. Hgb stable. Patient quite belligerent with staff today. VSS, AFEB Incision clean/dry. No significant drainage. Moderate swelling in knee. No calf TTP. NVI. POD #1 1. will try po Dilaudid and d/c oxycontin/oxycodone 2. continue PT and mobilization 3. plan for discharge home tomorrow if pain better controlled
[2017-05-06] MEDS: Docusate Sodium 100 MG Cap PO SCH ×2 (08:30→20:16)
[2017-05-06] MEDS: oxyCODONE ER 20 MG TAB.ER PO SCH (08:30)
[2017-05-06] MEDS: Celecoxib 100 MG Cap PO SCH (08:30)
[2017-05-06] MEDS ORDERED: Sodium Chloride 0.9% 2.5 ML Syringe FLUSH PRN (08:31)
[2017-05-06] MEDS ORDERED: Sodium Chloride 0.9% 10 ML Syringe FLUSH PRN (08:31)
--- NOTE | 2017-05-06 08:36 | OR ---
SURGEON: Marion Spangler MD DATE OF PROCEDURE: 05/05/2017 PREOPERATIVE DIAGNOSIS: Degenerative joint disease, right knee, tricompartmental. POSTOPERATIVE DIAGNOSIS: Degenerative joint disease, right knee, tricompartmental. PROCEDURE: Right total knee arthroplasty. ASSISTANTS: Albino Hernandez PA-C and Josselyn Lorenzo PA-C. ANESTHESIA: Spinal with sedation. ESTIMATED BLOOD LOSS: 50 mL. TOURNIQUET TIME: 64 minutes. COMPLICATIONS: None. DVT PROPHYLAXIS: PAS boot and KELLEN hose to the nonoperative leg. IMPLANTS USED: Krystal Persona femoral component size 11 standard (LPS), tibial component size G, 10 mm all-polyethylene articular surface, and 35 mm all-polyethylene patella. FINDINGS: Intraoperative findings showed severe tricompartmental degenerative changes with varus abnormality. He did have excess osteophyte formation and had a large osteophyte along the medial aspect of his tibia, which was able to be resected. He had multiple loose bodies within the joint as well. BRIEF HISTORY: Juventino is a 56-year-old male, who has had complaint of progressive right knee pain. He had failed conservative treatment. Due to his lack of response to conservative treatment, I did recommend surgical intervention. The risks and goals of the procedure were discussed with the patient and were documented preoperatively. He agreed to proceed. DESCRIPTION OF PROCEDURE: The patient was properly identified and brought to the operating room. The patient was then transferred from the operating room cart and placed on the operating table in a supine position. Anesthesia was administered by the anesthesia staff. After adequate anesthesia was obtained, a well-padded tourniquet was applied to the surgical lower extremity. Oshea catheter was placed. The lower extremity was then prepped in standard fashion using ChloraPrep solution. It was then sterilely draped. A time-out was performed to ensure correct site and procedure. Preoperative antibiotics were given along with one gram tranexamic acid IV. The surgical site had been marked preoperatively. An Esmarch was used to exsanguinate the right lower extremity and the tourniquet was inflated. An incision was made over the anterior aspect of the knee. The subcutaneous tissues were dissected down to the level of the fascia. A medial parapatellar approach to the knee was made. A portion of the infrapatellar fat pad was then excised. The distal femur was then exposed. The step reamer was used to gain access to the intramedullary canal. This was placed in 6 degrees of valgus. Pins were placed. The distal femoral cutting block was placed and the distal femoral cut was made. Instrumentation was then removed. The femur was then sized. Both Whitesides' line and the epicondylar axis were then marked with electrocautery. The 4-in-1 cutting block was placed. This was placed in a slightly externally rotated position, which corresponded well with the previously drawn lines. The cutting guide was then pinned into position. An Pastor wing guide was used to check the depth of resection of our anterior condylar cut and it was felt that no notching would occur. The anterior condylar cut was then made followed by the posterior condylar cut. Both the posterior chamfer and anterior chamfer cuts were then made. The cutting block was then removed along with the excess bony remnants. We then turned our attention to the tibia. The anterior cruciate ligament and posterior cruciate ligament were released and a posterior cruciate ligament retractor was placed to allow the tibia to be pulled anteriorly. The tibial extra-medullary guide was then positioned. We chose to take approximately 2 mm off of the lowest side. The proximal tibia cutting guide was then placed and screwed into position. The proximal tibial resection was then made with care being taken to protect the patellar tendon. The bony resection was then removed. The remainder of the medial and lateral meniscus were then excised. Care was taken to protect the popliteus tendon. The tibia was then sized to the appropriate size. The distal femur was then elevated. The posterior capsule was stripped off the distal femur both medially and laterally. The posterior capsule along with the medial and lateral gutters were then injected with a standard mixture consisting of clonidine, epinephrine, Toradol, and opivacaine, unless any allergies were found preoperatively. The femoral component was then placed onto the distal femur in a slightly lateral position. This fit the femur well. A box cut was then made without difficulty. This was then removed. The tibial trial along with the polyethylene liner was then placed. The knee came easily into full extension and was stable to varus and valgus stressing both in full extension and flexion. Any additional releases were performed at this time. We then returned our attention to the patella. The patella was everted and towel clamps were used to hold the patella in position. It was resected to a 15 millimeter thickness. It was then sized to the appropriate size. It was prepared in the usual fashion after placing the predetermined size clamps. This was placed in a slightly superior and medial position. The clamp was then removed. The patellar trial button was placed. The knee was taken through a range of motion using the no-touch technique. The patella tracked centrally. A drop alec was then placed to check alignment. All instruments were then removed from the knee. The tibial sizer was then placed on the tibia. The tibia was prepared in the usual fashion using the reamer and broach. This was then removed. All bony surfaces were copiously irrigated with Pulsavac solution. They were then suctioned dry. Cement was prepared on the back table in the usual manner. Antibiotic impregnated cement was used if the patient was diabetic. Once it was prepared, the bone ends were again suctioned dry. The tibia was cemented into place first. This was malleted into position. Excess cement was then cleared. The femur was then placed in a similar manner. We placed the polyethylene trial into place and the knee was brought into full extension. An axial load was placed while keeping the knee in full extension. The patella button was also cemented into position and the clamp was used to hold this in place as the cement was allowed to cure. The wound was copiously irrigated with saline using a pulsavac range management specialist. Following this, 1 gram of tranexamic acid was applied topically to the wound during the curing process. After we had adequate curing of the cement, the knee was again taken through a range of motion. The size of the polyethylene was then determined. The polyethylene trial was then removed. The tibial tray was suctioned to make sure there was no remaining soft tissue or cement. Excess cement was cleared from around the edges of the prosthesis as well. The tourniquet was then deflated. We were able to observe for any excess bleeding and none was noted. Electrocautery was used to maintain hemostasis. An additional gram of tranexamic acid was given IV. The retractors were again placed and the predetermined polyethylene was then placed. This was locked into position without difficulty. The knee was again taken through a range of motion with no change from the prior exam. The fascial layer was closed with Number One Vicryl. The subcutaneous tissues were closed with 2-0 Vicryl. The skin was closed with tereza. Xeroform gauze was placed over the wound and a bulky dressing was applied. The patient was then awakened from anesthesia and transferred back to the operating room cart. They were brought to the recovery room in stable condition. All needle and sponge counts were correct. RYAN LORA /[id number]
[2017-05-06] MEDS ORDERED: Aspirin 325 MG Tab PO SCH (09:00)
[2017-05-06] MEDS ORDERED: ALPRAZolam 0.5 MG Tab PO PRN ×2 (09:00→18:26)
--- NOTE | 2017-05-06 09:20 | CR ---
EXAMINATION: Right knee HISTORY: Arthroplasty COMPARISON: 03/11/2017 TECHNIQUE: 2 views FINDINGS/IMPRESSION: Right total knee hardware is demonstrated in good position and alignment. Postop erative soft tissue changes are noted.
--- NOTE | 2017-05-06 09:44 | PCM48HPAN ---
Post Anesthesia Note - EVALUATION WITHIN 48HRS OF ANESTHETIC Vital Signs in Normal Range: Yes Patient Participated in Evaluation: Yes Respiratory Function Stable: Yes Airway Patent: Yes Cardiovascular Function Stable: Yes Hydration Status Stable: Yes Pain Control Satisfactory: Yes Nausea and Vomiting Control Satisfactory: Yes Mental Status Recovered: Yes - COMMENTS/OBSERVATIONS Free Text/Narrative:: No apparent anesthesia complications.
[2017-05-06] MEDS: Aspirin 325 MG Tab.EC PO SCH ×2 (10:52→20:16)
[2017-05-06] MEDS: bisoprolol/HCTZ PO SCH (10:53)
[2017-05-06] MEDS: HYDROmorphone 2 MG Tab PO PRN (22:00)
[2017-05-07] MEDS: HYDROmorphone 2 MG Tab PO PRN ×2 (02:52→06:48)
[2017-05-07 04:25] VITALS: BP 148/87
[2017-05-07] MEDS: Pantoprazole 40 MG Tab.CR PO SCH (06:48)
--- NOTE | 2017-05-07 08:06 | PCM.SURGPN ---
- General Info Date of Service: 05/07/17 Date of Surgery/Procedure: 05/05/17 POD#: 2 Functional Status: Reports: Pain Controlled, Tolerating Diet, Ambulating, Urinating - Review of Systems General: Reports: No Symptoms Pulmonary: Reports: No Symptoms Cardiovascular: Reports: No Symptoms Gastrointestinal: Reports: No Symptoms Genitourinary: Reports: No Symptoms Musculoskeletal: Reports: Leg Pain, Joint Pain, Joint Swelling Neurological: Reports: No Symptoms Psychiatric: Reports: No Symptoms - Patient Data Vitals - Most Recent: Last Vital Signs Temp 37.3 C 05/07/17 04:00 Pulse 85 05/07/17 04:00 Resp 16 05/07/17 04:00 BP 148/87 H 05/07/17 04:00 Pulse Ox 96 05/07/17 04:00 Weight - Most Recent: 99.337 kg I&O - Last 24 Hours: Intake & Output 05/06/17 05/07/17 05/07/17 22:59 06:59 14:59 Intake Total 1890 1250 Output Total 2230 2800 Balance -340 -1550 Lab Results Last 24 Hrs: Laboratory Results - last 24 hr 05/07/17 Range/Units 07:14 Hgb 13.6 (13.0-17.0) g/dL Hct 39.3 (38.0-50.0) % Med Orders - Current: Current Medications Al Hydroxide/Mg Hydroxide (Mag-Al Plus) 30 ml PO Q4H PRN PRN Reason: indigestion Alprazolam (Xanax) 1 mg PO Q8H PRN PRN Reason: Anxiety Aspirin (Ecotrin) 325 mg PO BID [facility] Last Admin: 05/06/17 20:16 Dose: 325 mg Bisacodyl (Dulcolax) 10 mg RECTAL DAILY PRN PRN Reason: Constipation Celecoxib (Celebrex) 200 mg PO DAILY [facility] Last Admin: 05/06/17 08:30 Dose: 200 mg Diphenhydramine HCl (Benadryl) 25 - 50 mg PO Q6H PRN PRN Reason: Itching Docusate Sodium (Colace) 100 mg PO BID [facility] Last Admin: 05/06/17 20:16 Dose: 100 mg Fentanyl (Sublimaze) 50 mcg IVPUSH .Q5MIN PRN PRN Reason: Pain Last Admin: 05/05/17 17:12 Dose: 50 mcg Hydromorphone HCl (Dilaudid) 1 mg IVPUSH Q3H PRN PRN Reason: Pain Last Admin: 05/06/17 18:34 Dose: 1 mg Hydromorphone HCl (Dilaudid) 2 mg PO Q4H PRN PRN Reason: Pain Last Admin: 05/07/17 06:48 Dose: 2 mg Ondansetron HCl (Zofran) 4 mg IV Q6HR PRN PRN Reason: NAUSEA/VOMITING Pantoprazole Sodium (Protonix) 40 mg PO ACBREAKFAST [facility] Last Admin: 05/07/17 06:48 Dose: Not Given Bisoprolol/Hctz 1 each PO DAILY [facility] Last Admin: 05/06/17 10:53 Dose: Not Given Scopolamine (Transderm-Scop) 1.5 mg TRDERM ONARRIVE [facility] Last Admin: 05/05/17 12:40 Dose: 1.5 mg Sodium Chloride (Saline Flush) 10 ml FLUSH ASDIRECTED PRN PRN Reason: Keep Vein Open Sodium Chloride (Saline Flush) 2.5 ml FLUSH ASDIRECTED PRN PRN Reason: Keep Vein Open Discontinued Medications Alprazolam (Xanax) 1 mg PO DAILY PRN PRN Reason: Anxiety Aspirin (Aspirin) 325 mg PO BID [facility] Cyclobenzaprine HCl (Flexeril) 5 mg PO TID PRN PRN Reason: Back spasms Stop: 05/06/17 16:48 Last Admin: 05/05/17 18:15 Dose: 5 mg Famotidine (Pepcid) 40 mg IVPUSH ONARRIVE [facility] Stop: 05/05/17 15:00 Last Admin: 05/05/17 12:40 Dose: 40 mg Fentanyl (Sublimaze) Confirm Administered Dose 100 mcg .ROUTE .STK-MED ONE Stop: 05/05/17 13:39 Fentanyl (Sublimaze) Confirm Administered Dose 100 mcg .ROUTE .STK-MED ONE Stop: 05/05/17 14:56 Cefazolin Sodium/Dextrose 2 gm (/ Premix) 50 mls @ 100 mls/hr IV ONCALL [facility] Stop: 05/05/17 15:00 Ropivacaine 49.25 ml/Ketorolac Tromethamine 30 mg/Epinephrine HCl 0.5 mg/ Clonidine HCl 80 mcg/ Sodium Chloride 100 mls @ 50 mls/min INJECT ONETIME ONE Stop: 05/05/17 06:01 Lactated Ringer's (Ringers, Lactated) 1,000 mls @ 100 mls/hr IV ASDIRECTED [facility] Last Admin: 05/06/17 04:48 Dose: 100 mls/hr Acetaminophen 1,000 mg/ Premix 100 mls @ 400 mls/hr IV ONCALL ONE Stop: 05/05/17 06:14 Ropivacaine 49.25 ml/Epinephrine HCl 0.5 mg/Clonidine HCl 80 mcg/ Sodium Chloride 99 mls @ 50 mls/min INJECT ONETIME ONE Stop: 05/05/17 06:01 Last Admin: 05/05/17 17:43 Dose: Not Given Acetaminophen 1,000 mg/ Premix 100 mls @ 400 mls/hr IV ONCALL [facility] Stop: 05/05/17 15:00 Last Admin: 05/05/17 12:40 Dose: 400 mls/hr Acetaminophen 1,000 mg/ Premix 100 mls @ 400 mls/hr IV Q6H [facility] Stop: 05/06/17 02:14 Last Admin: 05/06/17 02:12 Dose: 400 mls/hr Cefazolin Sodium/Dextrose 2 gm (/ Premix) 50 mls @ 100 mls/hr IV Q8HR [facility] Stop: 05/06/17 06:29 Last Admin: 05/06/17 05:35 Dose: 100 mls/hr Acetaminophen (Ofirmev) Confirm Administered Dose 100 mls @ as directed IV .STK- MED ONE Stop: 05/06/17 01:52 Ketamine HCl (Ketalar) Confirm Administered Dose 500 mg .ROUTE .STK-MED ONE Stop: 05/05/17 14:45 Ketorolac Tromethamine (Toradol) 30 mg IVPUSH ONARRIVE [facility] Ketorolac Tromethamine (Toradol) 30 mg IVPUSH Q6H [facility] Stop: 05/06/17 04:16 Last Admin: 05/06/17 04:49 Dose: 30 mg Lidocaine (Xylocaine-Mpf 2%) Confirm Administered Dose 5 ml .ROUTE .STK-MED ONE Stop: 05/05/17 13:38 Midazolam HCl (Versed 1 Mg/Ml) Confirm Administered Dose 4 mg .ROUTE .STK-MED ONE Stop: 05/05/17 13:39 Morphine Sulfate (Morphine) 1 - 3 mg IVPUSH Q3H PRN PRN Reason: Pain Last Admin: 05/05/17 17:52 Dose: 3 mg Ondansetron HCl (Zofran) Confirm Administered Dose 4 mg .ROUTE .STK-MED ONE Stop: 05/05/17 14:46 Oxycodone HCl (Oxycontin) 20 mg PO ONARRIVE [facility] Stop: 05/05/17 15:00 Last Admin: 05/05/17 12:40 Dose: 20 mg Oxycodone HCl (Oxycodone) 5 - 10 mg PO Q4H PRN PRN Reason: Pain Last Admin: 05/06/17 10:37 Dose: 10 mg Oxycodone HCl (Oxycontin) 20 mg PO Q12HR [facility] Last Admin: 05/06/17 08:30 Dose: 20 mg Oxycodone HCl (Oxycodone) 10 - 20 mg PO Q4H PRN PRN Reason: Pain Last Admin: 05/06/17 18:00 Dose: 20 mg Propofol (Diprivan 20 Ml) Confirm Administered Dose 800 mg .ROUTE .STK-MED ONE Stop: 05/05/17 13:39 Tranexamic Acid (Cyklokapron) 4,000 mg IV SEECOMMENT [facility] Stop: 05/05/17 15:00 Tranexamic Acid (Cyklokapron) Confirm Administered Dose 4,000 mg .ROUTE .STK- MED ONE Stop: 05/05/17 07:19 - Exam Wound/Incisions: Dressing Dry and Intact (Dressing changed yesterday.) General: Alert, Oriented HEENT: Pupils Equal, Pupils Reactive Neck: Trachea Midline Lungs: Normal Respiratory Effort Cardiovascular: Regular Rate Extremities: Other (Right anterior tibialis, extensor hallucis longus and gastrocnemius strength +5/5 bilaterally. Sensation intact. Dorsalis pedis and posterior tibial pulses +2 bilaterally.) Neurological: No New Focal Deficit Psy/Mental Status: Alert, Normal Affect, Normal Mood - Problem List Review Problem List Initiated/Reviewed/Updated: Yes - My Orders Last 24 Hours: Active Orders 24 hr Category Date Time Status Ready for Discharge [RC] PER UNIT ROUTINE Care 05/06/17 08:35 Inactive HEMOGLOBIN/HEMATOCRIT,HH [HEME] DAILY Lab 05/08/17 07:00 Ordered ALPRAZolam [Xanax] Med 05/06/17 18:26 Active 1 mg PO Q8H PRN Aspirin [Ecotrin] Med 05/06/17 09:00 Active 325 mg PO BID Celecoxib [CeleBREX] Med 05/06/17 09:00 Active 200 mg PO DAILY HYDROmorphone [Dilaudid] Med 05/06/17 18:24 Active 2 mg PO Q4H PRN Pantoprazole [ProTONIX] Med 05/06/17 07:30 Active 40 mg PO ACBREAKFAST Patient's Own Medication [Ptom] Med 05/06/17 09:00 Active 1 each PO DAILY Sodium Chloride 0.9% [Saline Flush] Med 05/06/17 08:31 Active 10 ml FLUSH ASDIRECTED PRN Sodium Chloride 0.9% [Saline Flush] Med 05/06/17 08:31 Active 2.5 ml FLUSH ASDIRECTED PRN Convert IV to Saline Lock [OM.PC] Routine Oth 05/06/17 08:31 Ordered Medication Orders Al Hydroxide/Mg Hydroxide (Mag-Al Plus) 30 ml PO Q4H PRN PRN Reason: indigestion Alprazolam (Xanax) 1 mg PO Q8H PRN PRN Reason: Anxiety Aspirin (Ecotrin) 325 mg PO BID [facility] Last Admin: 05/06/17 20:16 Dose: 325 mg Admin: 05/06/17 10:52 Dose: 325 mg Bisacodyl (Dulcolax) 10 mg RECTAL DAILY PRN PRN Reason: Constipation Celecoxib (Celebrex) 200 mg PO DAILY [facility] Last Admin: 05/06/17 08:30 Dose: 200 mg Diphenhydramine HCl (Benadryl) 25 - 50 mg PO Q6H PRN PRN Reason: Itching Docusate Sodium (Colace) 100 mg PO BID [facility] Last Admin: 05/06/17 20:16 Dose: 100 mg Admin: 05/06/17 08:30 Dose: 100 mg Admin: 05/05/17 21:27 Dose: 100 mg Fentanyl (Sublimaze) 50 mcg IVPUSH .Q5MIN PRN PRN Reason: Pain Last Admin: 05/05/17 17:12 Dose: 50 mcg Admin: 05/05/17 17:07 Dose: 50 mcg Admin: 05/05/17 16:48 Dose: 50 mcg Admin: 05/05/17 16:35 Dose: 50 mcg Hydromorphone HCl (Dilaudid) 1 mg IVPUSH Q3H PRN PRN Reason: Pain Last Admin: 05/06/17 18:34 Dose: 1 mg Admin: 05/06/17 15:29 Dose: 1 mg Admin: 05/06/17 11:28 Dose: 1 mg Admin: 05/06/17 08:24 Dose: 1 mg Admin: 05/05/17 23:53 Dose: 1 mg Admin: 05/05/17 20:32 Dose: 1 mg Hydromorphone HCl (Dilaudid) 2 mg PO Q4H PRN PRN Reason: Pain Last Admin: 05/07/17 06:48 Dose: 2 mg Admin: 05/07/17 02:52 Dose: 2 mg Admin: 05/06/17 22:00 Dose: 2 mg Ondansetron HCl (Zofran) 4 mg IV Q6HR PRN PRN Reason: NAUSEA/VOMITING Pantoprazole Sodium (Protonix) 40 mg PO ACBREAKFAST [facility] Last Admin: 05/07/17 06:48 Dose: Admin: 05/06/17 06:39 Dose: 40 mg Bisoprolol/Hctz 1 each PO DAILY [facility] Last Admin: 05/06/17 10:53 Dose: Scopolamine (Transderm-Scop) 1.5 mg TRDERM ONARRIVE [facility] Last Admin: 05/05/17 12:40 Dose: 1.5 mg Sodium Chloride (Saline Flush) 10 ml FLUSH ASDIRECTED PRN PRN Reason: Keep Vein Open Sodium Chloride (Saline Flush) 2.5 ml FLUSH ASDIRECTED PRN PRN Reason: Keep Vein Open - Assessment Assessment (Free Text/Narrative):: Patient awake in bed this AM. Pain well controlled. Tolerating diet. VSS. Hgb 13.6. UO 5030 mL. - Plan Plan (Free Text/Narrative):: Continue PT. Continue PO pain management. Encourage PO fluid intake. Discharge home this afternoon.
[2017-05-07] MEDS: Celecoxib 100 MG Cap PO SCH (08:44)
[2017-05-07] MEDS: Docusate Sodium 100 MG Cap PO SCH (08:44)
[2017-05-07] MEDS: Aspirin 325 MG Tab.EC PO SCH (08:44)
[2017-05-07] MEDS: bisoprolol/HCTZ PO SCH (09:24)
--- NOTE | 2017-05-08 15:15 | PCM.SN ---
- Free Text/Narrative Note: Discharge summary Dressing change prior to discharge. See discharge form for complete list of discharge medications and instructions. Dictation #:[id number]
--- NOTE | 2017-05-09 12:00 | DISCH ---
DATE OF DISCHARGE: 05/07/2017 PRIMARY CARE PHYSICIAN: Alfonzo Taylor DO ADMITTING DIAGNOSIS: Degenerative joint disease, right knee, tricompartmental. OTHER MEDICAL DIAGNOSES: 1. Anxiety. 2. Depression. 3. Hypertension. 4. Hepatitis C. 5. Gastroesophageal reflux disease. DISCHARGE DIAGNOSES: 1. Status post right total knee arthroplasty. 2. Anxiety. 3. Depression. 4. Hypertension. 5. Hepatitis C. 6. Gastroesophageal reflux disease. BRIEF HISTORY: Juventino is a 56-year-old male who has had complaint of progressive right knee pain. He has failed conservative treatment. Due to his lack of response to conservative treatment, surgical intervention was recommended at that time. OPERATION: Right total knee arthroplasty. HOSPITAL COURSE: Pain was controlled with a combination of IV and p.o. pain medications. The patient did receive 2 doses of Ancef postoperatively for 24 hours of antibiotic coverage. He was followed by Physical Therapy during his hospital stay. Upon discharge, the patient's vital signs were stable and he was afebrile. Hemoglobin on the day of discharge was 13.6. Aspirin 325 mg p.o. b.i.d. was started on postop day #1 for DVT prophylaxis. The pain is currently controlled with oral pain medications only. He is tolerating oral intake and ambulating with wheeled walker. He feels comfortable discharge home today. DISCHARGE MEDICATIONS: 1. Aspirin 325 mg. 2. Celebrex 200 mg. 3. Colace 100 mg. 4. Dilaudid 2 mg. DISCHARGE INSTRUCTIONS: 1. The patient will follow up in the clinic on May 15, 2017. This appointment was made for the patient. 2. Outpatient physical therapy 2-3 times per week for 4-6 weeks. 3. [facility] to the right knee. 4. KELLEN hose to bilateral lower extremities, on in the morning and off in the evening. For complete medication reconciliation and discharge instructions, please refer to the patient's EHR. The patient has questions or concerns prior to followup, he may call the clinic. CARISSA LORA /[id number]
== END 2017-05-07 11:10 | disposition home or self-care (01) | DRG 470 ==
LOC: MW.MS 10:55
PROVIDERS: ADMIT Orthopaedic Surgery; ATTEND Orthopaedic Surgery
PROC: 0SRC0J9 Replacement of Right Knee Joint with Synthetic Substitute, Cemented, Open Approach (ICD-10-PCS; principal; 2017-05-05)
DX: M17.11 Unilateral primary osteoarthritis, right knee (principal); M21.161 Varus deformity, not elsewhere classified, right knee; M25.761 Osteophyte, right knee; I10 Essential (primary) hypertension; F41.8 Other specified anxiety disorders; F17.200 Nicotine dependence, unspecified, uncomplicated; Z86.19 Personal history of other infectious and parasitic diseases; Z79.899 Other long term (current) drug therapy
CPT/HCPCS: 01402; 36415; 73560-26-RT; 73560-RT; 85014; 85018; 86850; 86870; 86900; 86901; 86902; 86920; 86921; 86922; 88304; 88311; 97110-GP; 97161-GP; A9270-GY; C1713; C1776; J0171; J0690; J0735; J1170; J1885; J2250; J2270; J2405; J2704; J2795; J3010; J7050; J7120